=== PATIENT | female | born 1965 | race Caucasian/White ===

== ENCOUNTER 2017-03-09 16:22 | Emergency (ER) | payer OTHER ==
[~2017-03-09] VITALS: Ht 160 cm; Wt 72.6 kg
[~2017-03-09 16:22] MED LIST: DAYPRO600 M1 PO; KEFLEX500 MG PO
[2017-03-09] MEDS ORDERED: BACTRIM DS 8001 TA1 PO (16:48)
[2017-03-09] MEDS ORDERED: NAPROSYN500 MG PO (16:48)
[2017-03-09] MEDS ORDERED: ANTIBIOTIC O500 U/GM T (16:48)
== END 2017-03-09 17:01 | disposition home or self-care (01) ==
LOC: ED 16:22
DX: S61.213A Laceration without foreign body of left middle finger without damage to nail, initial encounter (principal); Z88.0 Allergy status to penicillin; W45.8XXA Other foreign body or object entering through skin, initial encounter; Y93.89 Activity, other specified; Y92.9 Unspecified place or not applicable; Y99.9 Unspecified external cause status

== ENCOUNTER → 2018-03-07 | Outpatient (CLI) | payer OTHER ==
[~2018-03-07] MED LIST changes: +ANTIBIOTIC O500 U/GM T; +BACTRIM DS 8001 TA1 PO; +NAPROSYN500 MG PO
[2018-03-07 09:56] LABS: BASO % 0.3 % (0.0-1.0); EOS # 0.1 10*3/uL (0.0-0.4); HEMATOCRIT 39.9 % (37.0-47.0); LYMPH # 2.2 10*3/uL (1.3-4.4); LYMPH % 30.9 % (27.0-41.0); MEAN CELL VOLUME 91.9 fl (81.0-99.0); MEAN CORPUSCULAR HGB CONC 32.6 g/dl (33.0-37.0); MEAN PLATELET VOLUME 9.7 fl (9.6-12.3); MONO # 0.6 10*3/uL (0.1-1.0); MONO % 8.6 % (3.0-9.0); NEUT # 4.1 10*3/uL (2.3-7.9); NEUT % 57.8 % (47.0-73.0); PLATELET COUNT AUTOMATED 290 10*3/uL (130-400); RED BLOOD COUNT 4.34 10*6/uL (4.10-5.10); RED CELL DISTRI WIDTH 12.5 % (0-14.5); WHITE BLOOD COUNT 7.1 10*3/uL (4.8-10.8)
[2018-03-07 10:28] LABS: ALBUMIN 3.6 gm/dl (3.1-4.5); ALKALINE PHOSPHATASE 63 U/L (45-117); BUN 18 mg/dl (7-24); CHLORIDE 106 mmol/L (98-107); CHOLESTEROL 145 mg/dL (<200); FREE T4 0.98 ng/dl (0.76-1.46); HDL CHOLESTEROL 57 mg/dl (40-60); LDL CHOLESTEROL 73 mg/dL (9-159); POTASSIUM 3.7 mmol/L (3.5-5.1); SGOT/AST 16 IU/L (3-35); SGPT/ALT 20 U/L (12-78); SODIUM 142 mmol/L (136-145); TRIGLYCERIDES 73 mg/dl (<150); VLDL CHOLESTEROL 15 mg/dL (6-40)
== END | disposition home or self-care (01) ==
LOC: LAB 09:32
PROVIDERS: Family Medicine
DX: E78.5 Hyperlipidemia, unspecified (principal); J30.2 Other seasonal allergic rhinitis

== ENCOUNTER 2024-04-12 10:57 | Inpatient (IN) | payer OTHER ==
[~2024-04-12] VITALS: Ht 162.5 cm; Wt 79.4 kg
[2024-04-12 11:05] VITALS: BP 93/59
[2024-04-12] MEDS ORDERED: SIMVASTATIN40 MG PO (11:20)
[2024-04-12] MEDS ORDERED: SODIUM CHLORIDE 0.9% 1,000 ML IV ONE (11:20)
[2024-04-12] MEDS ORDERED: ESTRADIOL0.5 MG PO (11:21)
[2024-04-12] MEDS ORDERED: OMEPRAZOLE MAGN20 MG PO (11:21)
[2024-04-12] MEDS ORDERED: MEDROXYPROGESTER5 M1 PO (11:21)
[2024-04-12] MEDS ORDERED: MONTELUKAST SOD10 MG PO (11:21)
[2024-04-12 12:07] LABS: POTASSIUM 5.2 mmol/L (3.4-5.1); TOTAL PROTEIN 8.1 gm/dL (6.0-8.0)
[2024-04-12 12:19] LABS: HEMATOCRIT 50.2 % (37.0-47.0); MEAN CELL VOLUME 96.7 fl (81.0-99.0); MEAN CORPUSCULAR HGB 30.3 pg (27.0-31.0); MEAN CORPUSCULAR HGB CONC 31.3 g/dl (33.0-37.0); MEAN PLATELET VOLUME 9.5 fl (9.6-12.3); PLATELET COUNT AUTOMATED 304 10*3/uL (130-400); RED BLOOD COUNT 5.19 10*6/uL (4.10-5.10); RED CELL DISTRI WIDTH 12.7 % (0-14.5); WHITE BLOOD COUNT 17.5 10*3/uL (4.8-10.8)
[2024-04-12 12:20] LABS: MANUAL DIFF REFLEX YES
[2024-04-12 12:37] LABS: POLYCHROMASIA SLIGHT; TOTAL CELLS COUNTED 100 #CELLS; TOXIC GRANULATION SLIGHT; VACUOLATION OF NEUTROPHILS SLIGHT
[2024-04-12 12:38] LABS: BURR CELLS FEW; OVALOCYTES FEW; PLATELET SUFFICIENCY NORMAL (NORMAL)
[2024-04-12] MEDS ORDERED: SODIUM CHLORIDE 0.9% 1,000 ML IV SCH ×2 (12:45→18:55)
[2024-04-12] MEDS ORDERED: METRONIDAZOLE 100 ML IV ONE (12:50)
[2024-04-12] MEDS ORDERED: CIPROFLOXACIN 200 ML IV ONE (12:50)
[2024-04-12] MEDS ORDERED: Magnesium Hydroxide 30 ML UDC PO PRN (14:05)
[2024-04-12] MEDS ORDERED: BISACODYL 10 MG SUPP R PRN (14:05)
[2024-04-12] MEDS ORDERED: ACETAMINOPHEN 325 MG TAB PO PRN (14:05)
[2024-04-12] MEDS ORDERED: BISACODYL 5 MG TAB PO PRN (14:05)
[2024-04-12] MEDS ORDERED: ACETAMINOPHEN 650 MG SUPP R PRN (14:05)
[2024-04-12] MEDS ORDERED: Acetaminophen/Hydrocodone 5 MG/325 MG TABLET PO PRN (14:05)
[2024-04-12] MEDS ORDERED: CALCIUM (TUMS) 500MG PO ONE (14:55)
[2024-04-12 15:18] VITALS: BP 100/54
[2024-04-12] MEDS ORDERED: Ondansetron Hydrochloride 4 MG TAB PO PRN (15:45)
[2024-04-12 17:20] VITALS: BP 111/47
[2024-04-12 20:56] VITALS: BP 113/66
[2024-04-12] MEDS ORDERED: METRONIDAZOLE 500 MG TAB PO SCH (22:00)
[2024-04-12] MEDS ORDERED: SIMVASTATIN 20 MG TAB PO SCH (22:00)
[2024-04-12] MEDS ORDERED: CIPROFLOXACIN 200 ML IV SCH (22:00)
[2024-04-12 22:41] LABS: BILIRUBIN Negative (Negative); BLOOD Negative (Negative); CLARITY Cloudy (Clear); COLOR Yellow (Yellow); GLUCOSE Negative (Negative); KETONE Negative (Negative); LEUKO ESTERASE Negative (Negative); NITRITE Negative (Negative); UROBILINOGEN 0.2 E.U./dl (0.0-1.0)
[2024-04-12 22:47] LABS: BACTERIA 1+; EPITHELIAL CELLS 21-30; WBC 0-2 wbc/hpf (0-5)
[2024-04-13 00:11] VITALS: BP 107/58
[2024-04-13 06:25] LABS: BASO % 0.1 % (0.0-1.0); EOS # 0.2 10*3/uL (0.0-0.4); EOS % 1.4 % (1.0-4.0); HEMATOCRIT 36.1 % (37.0-47.0); LYMPH # 1.5 10*3/uL (1.3-4.4); LYMPH % 12.9 % (27.0-41.0); MEAN CELL VOLUME 94.5 fl (81.0-99.0); MEAN CORPUSCULAR HGB 30.4 pg (27.0-31.0); MEAN CORPUSCULAR HGB CONC 32.1 g/dl (33.0-37.0); MEAN PLATELET VOLUME 9.5 fl (9.6-12.3); MONO # 0.8 10*3/uL (0.1-1.0); MONO % 6.5 % (3.0-9.0); NEUT # 9.2 10*3/uL (2.3-7.9); NEUT % 78.8 % (47.0-73.0); PLATELET COUNT AUTOMATED 252 10*3/uL (130-400); RED BLOOD COUNT 3.82 10*6/uL (4.10-5.10); RED CELL DISTRI WIDTH 13.1 % (0-14.5); WHITE BLOOD COUNT 11.6 10*3/uL (4.8-10.8)
[2024-04-13 06:58] LABS: VITAMIN D, 25-HYDROXY 65.4 ng/mL (30-100)
[2024-04-13 07:09] LABS: ACT PARTIAL THROMBO TIME 26.8 SECONDS (20.0-32.1)
[2024-04-13 07:15] LABS: ALKALINE PHOSPHATASE 54 U/L (46-116); BUN 12 mg/dl (9-23); CHLORIDE 112 mmol/L (98-107); CHOLESTEROL 128 mg/dL (<200); FREE T4 0.92 ng/dl (0.89-1.76); LDL CHOLESTEROL 73 mg/dL (9-159); SGPT/ALT 8 U/L (5-49); TOTAL PROTEIN 5.8 gm/dL (6.0-8.0); TRIGLYCERIDES 69 mg/dl (<150)
[2024-04-13 07:22] LABS: POTASSIUM 4.1 mmol/L (3.4-5.1)
[2024-04-13] MEDS ORDERED: OMEPRAZOLE 20 MG CAP PO SCH (07:30)
[2024-04-13 08:00] VITALS: BP 120/65
[2024-04-13] MEDS ORDERED: Enoxaparin Sodium 40 MG/0.4 ML SYR SC SCH (10:00)
[2024-04-13] MEDS ORDERED: Montelukast Sodium 10 MG TAB PO SCH (10:00)
[2024-04-13] MEDS ORDERED: ESTRADIOL 1 MG TAB PO SCH (10:00)
[2024-04-13 12:00] VITALS: BP 128/62
[2024-04-13] MEDS ORDERED: METRONIDAZOLE500 M1 PO (14:00)
[2024-04-13] MEDS ORDERED: CIPRO500 MG PO (14:00)
== END 2024-04-13 15:16 | disposition home or self-care (01) | DRG 871 ==
LOC: ED 10:57 → 4E 13:23 → EDHOLD 13:23 → 4E 16:25
PROVIDERS: Physician Assistant Medical; ADMIT Internal Medicine; ATTEND Internal Medicine
DX: A41.9 Sepsis, unspecified organism (principal); N17.0 Acute kidney failure with tubular necrosis; E87.20 Acidosis, unspecified; K52.9 Noninfective gastroenteritis and colitis, unspecified; R65.20 Severe sepsis without septic shock; K22.89 Other specified disease of esophagus; E86.0 Dehydration; Z20.822 Contact with and (suspected) exposure to COVID-19; E87.5 Hyperkalemia; R73.9 Hyperglycemia, unspecified; D64.9 Anemia, unspecified; E78.5 Hyperlipidemia, unspecified; K21.9 Gastro-esophageal reflux disease without esophagitis; J45.909 Unspecified asthma, uncomplicated; Z68.31 Body mass index [BMI] 31.0-31.9, adult; Z90.49 Acquired absence of other specified parts of digestive tract; Z88.0 Allergy status to penicillin; Z91.040 Latex allergy status; Z79.899 Other long term (current) drug therapy

== ENCOUNTER → 2024-04-15 | Outpatient (CLI) | payer OTHER ==
[~2024-04-15] MED LIST changes: +CIPRO500 MG PO; +ESTRADIOL0.5 MG PO; +MEDROXYPROGESTER5 M1 PO; +METRONIDAZOLE500 M1 PO; +MONTELUKAST SOD10 MG PO; +OMEPRAZOLE MAGN20 MG PO; +SIMVASTATIN40 MG PO
[2024-04-15 09:52] LABS: BASO % 0.3 % (0.0-1.0); EOS # 0.3 10*3/uL (0.0-0.4); EOS % 4.2 % (1.0-4.0); HEMATOCRIT 42.7 % (37.0-47.0); LYMPH # 1.8 10*3/uL (1.3-4.4); LYMPH % 22.2 % (27.0-41.0); MEAN CORPUSCULAR HGB 30.3 pg (27.0-31.0); MEAN CORPUSCULAR HGB CONC 32.6 g/dl (33.0-37.0); MEAN PLATELET VOLUME 9.4 fl (9.6-12.3); MONO # 0.5 10*3/uL (0.1-1.0); MONO % 6.7 % (3.0-9.0); NEUT # 5.3 10*3/uL (2.3-7.9); NEUT % 66.2 % (47.0-73.0); PLATELET COUNT AUTOMATED 323 10*3/uL (130-400); RED BLOOD COUNT 4.59 10*6/uL (4.10-5.10); RED CELL DISTRI WIDTH 12.9 % (0-14.5); WHITE BLOOD COUNT 7.9 10*3/uL (4.8-10.8)
[2024-04-15 10:47] LABS: ALKALINE PHOSPHATASE 64 U/L (46-116); BUN 10 mg/dl (9-23); CHLORIDE 107 mmol/L (98-107); POTASSIUM 4.4 mmol/L (3.4-5.1); SGPT/ALT 13 U/L (5-49); TOTAL PROTEIN 7.1 gm/dL (6.0-8.0)
== END | disposition home or self-care (01) ==
LOC: LAB 00:47
PROVIDERS: Internal Medicine; ATTEND Internal Medicine
DX: N17.9 Acute kidney failure, unspecified (principal); D64.9 Anemia, unspecified